=== PATIENT | female | born 1970 | race Caucasian/White ===

== ENCOUNTER 2019-11-19 19:54 | Emergency (ER) | payer OTHER ==
[~2019-11-19] VITALS: Ht 170.2 cm; Wt 89.8 kg
[2019-11-19 19:58] VITALS: BP 156/101
--- NOTE | 2019-11-19 20:04 | NUR ---
PT TAKEN TO BED 6
--- NOTE | 2019-11-19 20:10 | NUR ---
ERMD AT BEDSIDE.
--- NOTE | 2019-11-19 20:18 | NUR ---
PT STATES SHE PUT SPRAY ON SUNSCREEN TO FACE AND CHEST THIS AFTERNOON AND APPROX 1/2 HR LATER HER FACE AND CHEST AREA BECAME RED, ITCHING, AND BURNING. SKIN IS INTACT. DENIES ANY PROBLEMS WITH BREATHING OR SWALLOWING, AND NO SWELLING NOTED TO SKIN. PT IN [facility], BED IN LOWEST POSITION AND SIDERAIL UP X 1. ALLERGY - HAIR DYE NO MED HX
[2019-11-19] MEDS ORDERED: methylPREDNISolone SS 125 MG/2 ML VIAL ONE (20:19)
[2019-11-19] MEDS ORDERED: WATER STERILE 10 ML MC ONE (20:19)
[2019-11-19] MEDS ORDERED: KETOROLAC 30 MG/ML VIAL IM ONE (20:20)
[2019-11-19] MEDS ORDERED: methylPREDNISolone SS 125 MG in WATER STERILE 2 ML IM ONE (20:20)
[2019-11-19 20:56] VITALS: BP 102/58
--- NOTE | 2019-11-19 20:57 | NUR ---
Patient discharged with v/s stable. Written and verbal after care instructions given and explained. Patient alert, oriented and verbalized understanding of instructions. Ambulatory with steady gait. All questions addressed prior to discharge. ID band removed. Patient advised to follow up with PMD. Rx of NAPROSYN, NORCO, AND PREDNISONE given. Patient educated on indication of medication including possible reaction and side effects. Opportunity to ask questions provided and answered.
== END 2019-11-19 20:57 | disposition home or self-care (01) ==
LOC: MED 19:54
DX: L50.9 Urticaria, unspecified (principal); R21 Rash and other nonspecific skin eruption
CPT/HCPCS: 96372; 99284; J1885; J2930

== ENCOUNTER 2019-12-07 19:31 | Emergency (ER) | payer OTHER ==
[~2019-12-07] VITALS: Ht 170.2 cm; Wt 95.3 kg
[2019-12-07 19:40] VITALS: BP 153/99
--- NOTE | 2019-12-07 19:46 | NUR ---
PT AMBULATED TO BED 04 VIA STEADY GAIT.
--- NOTE | 2019-12-07 19:47 | NUR ---
Mely torres in [facility] - 12/07/19 at 1948 by HARJIT PT TAKEN TO BED 4
[2019-12-07] MEDS ORDERED: methylPREDNISolone SS 125 MG in WATER STERILE 2 ML IM ONE (19:55)
[2019-12-07] MEDS ORDERED: WATER STERILE 10 ML MC ONE (20:02)
[2019-12-07] MEDS ORDERED: methylPREDNISolone SS 125 MG/2 ML VIAL ONE (20:03)
--- NOTE | 2019-12-07 20:15 | NUR ---
49 Y/O FEMALE PRESENTS TO ER WITH C/O FACE, AND NECK REDNESS, PRURITUS, SWELLING X 1 MONTH. SKIN ON THE REST OF BODY IS NORMAL IN COLOR, AND NON PRURITIC. 5/10 PAIN. PT STATES SHE LIVES WITH POSSIBLE RODENT INFESTATION, AND FLEAS. PT STATES SHE TOOK 50MG OF BENADRYL PO AT 1500 BEFORE COMING ER. NO BITES VISUALIZED ON NECK, FACE, OR SCALP. PT ALSO C/O DIARRHEA. DENIES NAUSEA, VOMITING, COUGH, SOB, THROAT IRRITATION, HEADACHE, VISION CHANGES. VSS, R/R EQUAL, AND UNLABORED. SIDE RAIL X2, BED IN LOW POSITION, WILL CONTINUE TO MONITOR. NKDA DENIES PMH ALLERGY: BLACK HAIR DYE
[2019-12-07 20:50] VITALS: BP 153/99
--- NOTE | 2019-12-07 20:50 | NUR ---
Patient discharged with v/s stable. Written and verbal after care instructions given and explained. Patient alert, oriented and verbalized understanding of instructions. Ambulatory with steady gait. All questions addressed prior to discharge. ID band removed. Patient advised to follow up with PMD. Rx of NAPROSYN; PREDNISONE given. Patient educated on indication of medication including possible reaction and side effects. Opportunity to ask questions provided and answered.
== END 2019-12-07 20:50 | disposition home or self-care (01) ==
LOC: MED 19:31
DX: T78.40XA Allergy, unspecified, initial encounter (principal); R22.0 Localized swelling, mass and lump, head; R22.2 Localized swelling, mass and lump, trunk; Z98.890 Other specified postprocedural states; X58.XXXA Exposure to other specified factors, initial encounter
CPT/HCPCS: 96372; 99283; J2930

== ENCOUNTER 2022-04-12 10:55 | Outpatient (CLI) | payer OTHER ==
[~2022-04-12] VITALS: Ht 172.7 cm; Wt 86.2 kg
== END 2022-04-12 23:59 | disposition home or self-care (01) ==
LOC: MLB 10:55 → EDSTATUS 04-14 09:10
PROVIDERS: ATTEND Internal Medicine Gastroenterology
DX: Z01.818 Encounter for other preprocedural examination (principal); Z12.11 Encounter for screening for malignant neoplasm of colon; Z20.822 Contact with and (suspected) exposure to COVID-19

== ENCOUNTER 2023-03-19 11:17 | Emergency (ER) | payer OTHER ==
[~2023-03-19] VITALS: Ht 172.7 cm; Wt 82.6 kg
[2023-03-19 11:51] VITALS: BP 155/106; PULSE 70; RESP 18; TEMP 97.9; O2SAT 99
[2023-03-19 13:29] LABS: BASOPHILS % (AUTO) 0.6 % (0.0-2.0); EOSINOPHILS # (AUTO) 0.2 K/uL (0-0.4); EOSINOPHILS % (AUTO) 2.2 % (0.0-4.0); HEMATOCRIT 40.8 % (36-48); HEMOGLOBIN 13.9 g/dL (12.0-16.0); LYMPHOCYTES # (AUTO) 2.6 K/uL (2.5-16.5); LYMPHOCYTES % (AUTO) 34.8 % (20.5-51.1); MEAN CORPUSCULAR HEMOGLOBIN 31 pg (27-31); MEAN CORPUSCULAR HGB CONC 34 g/dL (33-37); MEAN CORPUSCULAR VOLUME 89.4 fL (80-94); MONOCYTES # (AUTO) 0.5 K/uL (0.8-1.0); MONOCYTES % (AUTO) 6.1 % (1.7-9.3); NEUTROPHILS # (AUTO) 4.2 K/uL (1.8-7.7); NEUTROPHILS % (AUTO) 56.3 % (42.2-75.2); PLATELET COUNT (AUTO) 114 K/uL (140-450); RED BLOOD CELL COUNT(AUTO) 4.56 MIL/uL (4.20-5.40); RED CELL DISTRIBUTION WIDTH 13.8 % (11.6-13.7); WHITE BLOOD COUNT (AUTO) 7.4 K/uL (4.8-10.8)
[2023-03-19 13:39] LABS: APPEARANCE,URINE SL CLOUDY (CLEAR); BILIRUBIN,URINE NEGATIVE (NEGATIVE); BLOOD, URINE NEGATIVE (NEGATIVE); COLOR,URINE YELLOW (YELLOW); LEUKOCYTE ESTERASE ,URINE NEGATIVE (NEGATIVE); NITRITE, URINE NEGATIVE (NEGATIVE); PH,URINE 6.5 (5.0-9.0); PROTEIN,URINE NEGATIVE (NEGATIVE); UGLUCOSE NEGATIVE (NEGATIVE); UROBILINOGEN,URINE 0.2 EU/dL (0.2 - 1)
[2023-03-19 13:45] LABS: INR 1.08 (0.8-1.2); PARTIAL THROMBOPLASTIN TIME 20.1 secs (22-35.6); PROTHROMBIN TIME 11.3 secs (10.8-13.4)
[2023-03-19 13:48] LABS: ANION GAP 11.7 (8-16); CALCIUM 8.7 mg/dL (8.5-10.1); CARBON DIOXIDE 25.2 mmol/L (21-32); CREATININE 0.6 mg/dL (0.6-1.3); POTASSIUM 3.9 mmol/L (3.5-5.1)
[2023-03-19] MEDS ORDERED: KETOROLAC 30 MG/ML VIAL IVP ONE (14:10)
[2023-03-19 14:32] VITALS: O2SAT 99
[2023-03-19 14:40] VITALS: BP 126/69; PULSE 69; RESP 12; TEMP 98.3; O2SAT 96
[2023-03-19] MEDS ORDERED: IBUP-2213 PO (15:37)
== END 2023-03-19 15:51 | disposition home or self-care (01) ==
LOC: MED 11:17
DX: R10.9 Unspecified abdominal pain (principal); J40 Bronchitis, not specified as acute or chronic; I72.2 Aneurysm of renal artery; I74.8 Embolism and thrombosis of other arteries; M54.50 Low back pain, unspecified; F17.210 Nicotine dependence, cigarettes, uncomplicated
CPT/HCPCS: 36415; 71045; 80048; 81003; 83880; 84484; 85025; 85610; 85730; 93005; 93976; 96374; 99285; J1885; Q0092